=== PATIENT | male | born 1940 | race Caucasian/White ===

== ENCOUNTER → 2018-03-24 12:29 | Outpatient (CLI) | payer MEDICARE, OTHER, SELFPAY ==
--- NOTE | 2018-03-24 | DI.US.S_ITS ---
PROCEDURE: US CAROTID DOPPLER BI INDICATIONS: RIGHT SDIDED CAROTID ENDARTERECTOMY TECHNIQUE: Color and pulse Doppler interrogation was performed of both carotid systems, with image documentation and velocity measurements. COMPARISON: [facility], , CAROTID ARTERY DOPPLER BILAT, 02/11/2017, 11:15. FINDINGS: Stenosis calculations are based on SRU (Society of Radiologists in Ultrasound) criteria. Right side: Brachial blood pressure: 136/86 mm Hg. Common carotid artery peak systolic velocity: 92 cm/sec. Internal carotid artery peak systolic velocity: 77 cm/sec. Internal carotid artery end diastolic velocity: 19 cm/sec. External carotid artery peak systolic velocity: 67 cm/sec. ICA/CCA peak systolic ratio: 0.84. Cox scale imaging description: Minimal plaque at the bifurcation. Percent internal carotid artery stenosis: Less than 50%. Vertebral artery: Flow direction is antegrade. Left side: Brachial blood pressure: 1:30 1036 mm Hg. Common carotid artery peak systolic velocity: 109 cm/sec. Internal carotid artery peak systolic velocity: 192 cm/sec. Internal carotid artery end diastolic velocity: 47 cm/sec. External carotid artery peak systolic velocity: 248 cm/sec. ICA/CCA peak systolic ratio: 1.76. Cox scale imaging description: Moderate plaque at the bifurcation. Percent internal carotid artery stenosis: 50-69%. Vertebral artery: Flow direction is antegrade. IMPRESSION: 1. Less than 50% stenosis on the right, unchanged. 2. 50-69% on the right. Although percentage of stenosis is unchanged, it is noted that there has been elevation in both velocities as well as ICA/CCA ratio demonstrating interval progression. Dictated by: Anastasia Retana M.D. on 03/24/2018 at 16:24 Approved by: Anastasia Retana M.D. on 03/24/2018 at 16:26
== END ==
PROVIDERS: PCP Family Medicine; Visit Provider Internal Medicine Cardiovascular Disease
DX: I65.23 Occlusion and stenosis of bilateral carotid arteries (principal); Z98.890 Other specified postprocedural states
CPT/HCPCS: 93880

== ENCOUNTER → 2020-03-02 11:58 | Outpatient (CLI) | payer MEDICARE, OTHER, SELFPAY ==
--- NOTE | 2020-03-02 12:48 | DI.US.S_ITS ---
PROCEDURE: US CAROTID DOPPLER BI INDICATIONS: STENOSIS TECHNIQUE: Color and pulse Doppler interrogation was performed of both carotid systems, with image documentation and velocity measurements. COMPARISON: [facility], , US CAROTID DOPPLER BI, 03/24/2018, 13:08. FINDINGS: Stenosis calculations are based on SRU (Society of Radiologists in Ultrasound) criteria. Right side: Brachial blood pressure: 133/71 mm Hg. Common carotid artery peak systolic velocity: 106 cm/sec. Internal carotid artery peak systolic velocity: 96 cm/sec. Internal carotid artery end diastolic velocity: 32 cm/sec. External carotid artery peak systolic velocity: 94 cm/sec. ICA/CCA peak systolic ratio: 0.9 . Cox scale imaging description: Moderate scattered plaque Percent internal carotid artery stenosis: Less than 50% . Vertebral artery: Flow direction is antegrade. Left side: Brachial blood pressure: 132/76 mm Hg. Common carotid artery peak systolic velocity: 128 cm/sec. Internal carotid artery peak systolic velocity: 175 cm/sec. Internal carotid artery end diastolic velocity: 47 cm/sec. External carotid artery peak systolic velocity: 156 cm/sec. ICA/CCA peak systolic ratio: 1.4 . Cox scale imaging description: Heavy scattered plaque. Percent internal carotid artery stenosis: 50-69% Vertebral artery: Flow direction is antegrade. IMPRESSION 1. Stable, less than 50% stenosis of the right ICA. 2. Stable 50-69% left ICA stenosis. Dictated by: Brett Michele [facility] Interpreted: Vivienne Acosta MD on 03/02/2020 at 13:08 Approved by: Vivienne Acosta M.D. on 03/02/2020 at 14:37
== END ==
PROVIDERS: PCP Family Medicine; Referring Provider Internal Medicine Cardiovascular Disease; Visit Provider Internal Medicine Cardiovascular Disease
DX: I65.23 Occlusion and stenosis of bilateral carotid arteries (principal)
CPT/HCPCS: 93880

== ENCOUNTER → 2021-05-18 08:32 | Outpatient (CLI) | payer MEDICARE, OTHER, SELFPAY ==
--- NOTE | 2021-05-18 | DI.US.S_ITS ---
PROCEDURE: US CAROTID DOPPLER BI INDICATIONS: RIGHT CAROTID ENDARTERECTOMY TECHNIQUE: Color and pulse Doppler interrogation was performed of both carotid systems, with image documentation and velocity measurements. COMPARISON: [facility], , US CAROTID DOPPLER BI, 03/24/2018, 13:08. [facility], , CAROTID ARTERY DOPPLER BILAT, 02/11/2017, 11:15. [facility], , CAROTID ARTERY DOPPLER BILAT, 03/27/2015, 9:03. [facility], , CAROTID ARTERY DOPPLER BILAT, 01/05/2014, 15:02. [facility], , CAROTID ARTERY DOPPLER BILAT, 09/28/2012, 12:56. [facility], , US CAROTID DOPPLER BI, 03/02/2020, 12:32. FINDINGS: Stenosis calculations are based on SRU (Society of Radiologists in Ultrasound) criteria. Right side: Brachial blood pressure: 106/54 mm Hg. Common carotid artery peak systolic velocity: 123 cm/sec (prior 106 cm/s). Internal carotid artery peak systolic velocity: 120 cm/sec (prior 96 cm/s). Internal carotid artery end diastolic velocity: 17 cm/sec (prior 32 cm/s). External carotid artery peak systolic velocity: 130 cm/sec (prior 94 cm/s). ICA/CCA peak systolic ratio: 1 (prior 0.9). Cox scale imaging description: Prior carotid endarterectomy. Percent internal carotid artery stenosis: Less than 50% by velocity criteria. Vertebral artery: Flow direction is antegrade. Left side: Brachial blood pressure: 114/63 mm Hg. Common carotid artery peak systolic velocity: 119 cm/sec (prior 128 cm/s). Internal carotid artery peak systolic velocity: 292 cm/sec (prior 175 cm/s). Internal carotid artery end diastolic velocity: 49 cm/sec (prior 47 cm/s). External carotid artery peak systolic velocity: 210 cm/sec (prior 157 cm/s). ICA/CCA peak systolic ratio: 2.5 (prior 1.4). Cox scale imaging description: Moderate atherosclerotic changes are seen. Percent internal carotid artery stenosis: Greater than 70%. Vertebral artery: Flow direction is antegrade. IMPRESSION: Worsening disease on the left compared to the prior examination, now with greater than 70% stenosis by velocity criteria within the left internal carotid artery. There is also greater than 50% stenosis seen involving the left external carotid artery. Prior right carotid endarterectomy change can be seen, without recurrent stenosis. Dictated by: Yogesh Bales M.D. on 05/18/2021 at 9:27 Approved by: Yogesh Bales M.D. on 05/18/2021 at 9:31
== END ==
PROVIDERS: PCP Family Medicine; Referring Provider Internal Medicine Cardiovascular Disease; Visit Provider Internal Medicine Cardiovascular Disease
DX: I65.23 Occlusion and stenosis of bilateral carotid arteries (principal); Z98.890 Other specified postprocedural states
CPT/HCPCS: 93880

== ENCOUNTER → 2021-10-29 12:28 | Outpatient (CLI) | payer MEDICARE, OTHER, SELFPAY ==
--- NOTE | 2021-10-29 | DI.US.S_ITS ---
PROCEDURE: US CAROTID DOPPLER BI INDICATIONS: STENOSIS TECHNIQUE: Color and pulse Doppler interrogation was performed of both carotid systems, with image documentation and velocity measurements. COMPARISON: [facility], , US CAROTID DOPPLER BI, 05/18/2021, 8:57. FINDINGS: Stenosis calculations are based on SRU (Society of Radiologists in Ultrasound) criteria. Right side: Brachial blood pressure: 130/66 mm Hg. Common carotid artery peak systolic velocity: 122 cm/sec. Internal carotid artery peak systolic velocity: 73 cm/sec. Internal carotid artery end diastolic velocity: 23 cm/sec. External carotid artery peak systolic velocity: 114 cm/sec. ICA/CCA peak systolic ratio: 0.6. Cxo scale imaging description: Postsurgical changes from prior endarterectomy. Percent internal carotid artery stenosis: No significant stenosis. Vertebral artery: Flow direction is antegrade. Left side: Brachial blood pressure: 129/70 mm Hg. Common carotid artery peak systolic velocity: 148 cm/sec. Internal carotid artery peak systolic velocity: 255 cm/sec. Internal carotid artery end diastolic velocity: 65 cm/sec. External carotid artery peak systolic velocity: 291 cm/sec. ICA/CCA peak systolic ratio: 1.7. Cox scale imaging description: Multifocal calcified atherosclerotic plaque. Percent internal carotid artery stenosis: 70% to near occlusion. Vertebral artery: Flow direction is antegrade. IMPRESSION: 1. Greater than 70% stenosis of the left proximal internal carotid artery does not appear significantly changed when compared to the exam from 05/18/2021. 2. Postsurgical changes again seen from right carotid endarterectomy without recurrent stenosis. Dictated by: Marlon Vallecillo M.D. on 10/29/2021 at 20:39 Approved by: Marlon Vallecillo M.D. on 10/29/2021 at 20:43
== END ==
PROVIDERS: PCP Family Medicine; Referring Provider Internal Medicine Cardiovascular Disease; Visit Provider Internal Medicine Cardiovascular Disease
DX: I65.23 Occlusion and stenosis of bilateral carotid arteries (principal)
CPT/HCPCS: 93880

== ENCOUNTER → 2022-05-14 11:03 | Outpatient (CLI) | payer MEDICARE, OTHER, SELFPAY | PROVIDERS: PCP Family Medicine; Referring Provider Nurse Practitioner Family; Visit Provider Nurse Practitioner Family | DX: I65.22 Occlusion and stenosis of left carotid artery (principal); Z98.890 Other specified postprocedural states; Z53.20 Procedure and treatment not carried out because of patient's decision for unspecified reasons ==

== ENCOUNTER → 2022-08-20 10:06 | Outpatient (CLI) | payer MEDICARE, OTHER, SELFPAY ==
--- NOTE | 2022-08-20 | DI.US.S_ITS ---
PROCEDURE: US CAROTID DOPPLER BI INDICATIONS: HISTORY OF OCCLUSION AND RIGHT ENDARTERECTOMY TECHNIQUE: Color and pulse Doppler interrogation was performed of both carotid systems, with image documentation and velocity measurements. COMPARISON: [facility], , CAROTID DOPPLER BI, 10/29/2021, 12:36. FINDINGS: Stenosis calculations are based on SRU (Society of Radiologists in Ultrasound) criteria. Right side: Brachial blood pressure: 128/69 mm Hg. Common carotid artery peak systolic velocity: 146 cm/sec. Internal carotid artery peak systolic velocity: 109 cm/sec. Internal carotid artery end diastolic velocity: 24 cm/sec. External carotid artery peak systolic velocity: 151 cm/sec. ICA/CCA peak systolic ratio: 0.7 Cox scale imaging description: Atherosclerotic plaque Percent internal carotid artery stenosis: Less than 50 . Vertebral artery: Flow direction is antegrade. Left side: Brachial blood pressure: 125/63 mm Hg. Common carotid artery peak systolic velocity: 139 cm/sec. Internal carotid artery peak systolic velocity: 287 cm/sec. Internal carotid artery end diastolic velocity: 39 cm/sec. External carotid artery peak systolic velocity: 292 cm/sec. ICA/CCA peak systolic ratio: 2.1 Cox scale imaging description: Moderate atherosclerotic plaque Percent internal carotid artery stenosis: Greater than 70% . Vertebral artery: Flow direction is antegrade. IMPRESSION: Peak systolic velocity and ratio is consistent with a greater than 70% stenosis in the left proximal ICA. Less than 50% stenosis proximal right ICA Approved by: Ruben Winston M.D. on 08/20/2022 at 16:38
--- NOTE | 2022-08-20 | DI.ECHO.S_ITS ---
[facility]---------+ [facility] +---------+ : : [address] : : : : [id number] : : : : Phone: [phone]+ Echocardiogram Report + + :Name: JAIME MEJIAS Study Date: 08/20/2022 Height: 68.5 in: :[facility] ReadingLocation: Weight: 164 lb : : Gender: Male BSA: 1.9 m2 : :: 1940 Age: 82 yrs BP: 139/94 mmHg: :Reason For Study: MURMUR : :Ordering Physician: MANDI, : :MIKE Performed By: Rylee Parker : :Referring: MIKE RAYMOND : + + Interpretation Summary 1) Normal left ventricular size, wall motion, and systolic function (EF 55- 60%). 2) Normal right ventricular size with mildly reduced function. 3) There is mild to moderate aortic stenosis (valve area 1.1cm2, mean gradient 13mmHg, severity ratio 0.46). 4) No prior Echo available for comparison. Procedure: A two-dimensional transthoracic echocardiogram with color flow and Doppler was performed. The study quality was technically adequate. There is no prior echocardiogram noted for this patient. The patient was in sinus rhythm with heart rates between 58-72 bpm during the exam. Left Ventricle: The left ventricle is normal in size. Left ventricular wall thickness is at the upper limits of normal. Proximal septal thickening is noted. The ejection fraction is estimated to be 55-60%. Left ventricular systolic function appears normal without focal wall motion abnormalities. Right Ventricle: The right ventricle is normal size. Right ventricular systolic function is mildly reduced. Atria: The left atrial size is normal. Right atrial size is normal. There is no Doppler evidence for an interatrial shunt. Mitral Valve: The mitral valve is normal in structure and function. There is mild mitral regurgitation. Aortic Valve: The aortic valve is trileaflet. The aortic valve is moderately calcified. There is mildly reduced leaflet mobility. The peak aortic velocity is 2.3 m/sec. The aortic valve mean gradient is 13 mmHg. The calculated aortic valve area is 1.1 cm2. There is mild to moderate aortic stenosis. There is mild aortic regurgitation. Tricuspid Valve: The tricuspid valve is normal in structure and function. There is mild tricuspid regurgitation. The right ventricular systolic pressure is estimated to be at least 36 mmHg based on an estimated right atrial pressure of 3 mm Hg. Pulmonic Valve: The pulmonic valve leaflets are thin and pliable; valve motion is normal. There is no pulmonic valvular regurgitation. Great Vessels: The aortic root is normal size. The dimensions of the ascending aorta are normal. The IVC is of normal diameter and collapses greater than 50% with a sniff. This suggests a low right atrial pressure of 3 mm Hg. Pericardium/ Pleura There is no pericardial effusion. There is no pleural effusion. MMode/2D Measurements & Calculations LVIDd: 4.6 cm LVOT diam: 1.7 cm LVIDs: 2.9 cm Ao root diam: 2.9 cm FS: 36.3 % asc Aorta Diam: 3.5 cm IVSd: 1.3 cm Ao Arch Diam (Prox Trans): 2.1 cm LVPWd: 0.92 cm LV huang. diameter/BSA (cm/m^2): 2.4 LV sys. diameter/BSA (cm/m^2): 1.5 LA A2 area: 20.2 cm2 RA long axis: 5.2 cm LA A4 area: 19.9 cm2 RA area: 18.1 cm2 LA length (vol): 5.4 cm RA vol: 54.0 ml LA vol: 63.1 ml RA : 28.6 ml/m2 LA vol index: 33.4 ml/m2 IVC diam: 1.3 cm RVD1 (basal): 3.9 cm RVD2 (mid): 2.2 cm TAPSE: 1.6 cm Doppler Measurements & Calculations Ao V2 max: 234.3 cm/sec LVOT Max Good: 105.5 cm/sec Ao V2 mean: 156.0 cm/sec LV V1 max P.5 mmHg Ao max P.0 mmHg LV V1 VTI: 24.4 cm Ao mean P.1 mmHg NAHUN(I,D): 1.1 cm2 Ao V2 VTI: 52.9 cm NAHUN(V,D): 1.1 cm2 sev ratio: 0.46 NAHUN indexed to BSA (cm^2/m^2): 0.58 MV E max good: 76.7 cm/sec TR max good: 283.1 cm/sec MV A max good: 89.5 cm/sec TR max P.1 mmHg MV E/A: 0.86 PA V2 max: 104.8 cm/sec Med Peak E' Good: 6.9 cm/sec PA V2 mean: 69.4 cm/sec E/E' med: 11.1 PA mean P.2 mmHg Lat Peak E' Good: 8.1 cm/sec PA pr(Accel): 41.3 mmHg E/E' lat: 9.5 E/e' average: 10.3 MV dec time: 0.25 sec SV(LVOT): 58.4 ml Reading Physician:04:16 PM
--- NOTE | 2022-08-20 | DI.NM.S_ITS ---
PROCEDURE: MD GENE PERF SPECT R&S PHARM Rest and pharmacological stress myocardial perfusion SPECT with gated imaging and ejection fraction RADIOPHARMACEUTICAL: 11.5 mCi Tc-99m tetrafosmin IV at rest and 25.4 mCi Tc-99m tetrafosmin IV at peak effect of pharmacological stress. A [id number] was performed. TECHNIQUE: Radiopharmaceutical was injected at peak stress test, and also at rest. SPECT images were obtained. SPECT myocardial perfusion images were displayed in short axis, horizontal long axis, and vertical long axis views. Gated images were reviewed using Aerospike software. COMPARISON: None. CARDIAC STRESS: A pharmacologic stress test was performed under the supervision of an attending staff, using an infusion of regadenoson. Hemodynamic data: There is normal blood pressure and heart rate response to pharmacologic stress. Symptoms: The patient denied anginal chest pain. EKG: No diagnostic ECG changes. FINDINGS: Raw data: There is good myocardial uptake of radiotracer. No significant motion artifacts. Iyju-cj-dvima ratio is 0.34 (normal is less than 0.38 for tetrafosmin tracer). Left ventricle function: Gated images demonstrate normal left ventricular wall thickening except mild hypokinesis of the inferoapex. No segmental wall motion abnormalities. No transient ischemic dilation; TID is 1.06 (normal less than 1.3). Left ventricle resting end diastolic volume is 89 mL. Left ventricle stress ejection fraction is 74%; normal range is above 45%. Myocardial perfusion: There is a small size, mild intensity partially reversible apical inferior wall defect. No reversible perfusion defects. IMPRESSION: Low risk study without inducible ischemia. The small size, mild intensity, partially reversible apical inferior wall defect with associated mild hypokinesis is consistent with a prior small nontransmural infarct. Normal LV function. Dictated by: Mariann Crain D.O. on 08/20/2022 at 16:36 Approved by: Mariann Crain D.O. on 08/20/2022 at 16:51
== END ==
PROVIDERS: PCP Family Medicine; Referring Provider Internal Medicine Cardiovascular Disease; Visit Provider Internal Medicine Cardiovascular Disease
DX: I65.23 Occlusion and stenosis of bilateral carotid arteries (principal); I08.3 Combined rheumatic disorders of mitral, aortic and tricuspid valves; R06.02 Shortness of breath; R01.1 Cardiac murmur, unspecified; I25.10 Atherosclerotic heart disease of native coronary artery without angina pectoris; Z95.1 Presence of aortocoronary bypass graft; Z98.890 Other specified postprocedural states
CPT/HCPCS: 78452; 93017; 93306; 93880; A9502; J2785

== ENCOUNTER → 2024-01-27 14:12 | Outpatient (CLI) | payer MEDICARE, OTHER, SELFPAY ==
--- NOTE | 2024-01-27 14:14 | DI.US.S_ITS ---
PROCEDURE: US CAROTID DOPPLER BI INDICATIONS: Shortness of breath TECHNIQUE: Color and pulse Doppler interrogation was performed of both carotid systems, with image documentation and velocity measurements. COMPARISON: [facility], [place], US CAROTID DOPPLER BI, 08/20/2022, 10:38. FINDINGS: Stenosis calculations are based on SRU (Society of Radiologists in Ultrasound) criteria. Right side: Brachial blood pressure: 144/69 mm Hg. Common carotid artery peak systolic velocity: 93 cm/sec. Internal carotid artery peak systolic velocity: 69 cm/sec. Internal carotid artery end diastolic velocity: 12 cm/sec. External carotid artery peak systolic velocity: 90 cm/sec. ICA/CCA peak systolic ratio: 0.8. Cox scale imaging description: Mild atherosclerotic plaque at the common carotid bifurcation Percent internal carotid artery stenosis: Less than 50% stenosis . Vertebral artery: Flow direction is antegrade. Left side: Brachial blood pressure: 141/70 mm Hg. Common carotid artery peak systolic velocity: 111 cm/sec. Internal carotid artery peak systolic velocity: 236 cm/sec. Internal carotid artery end diastolic velocity: 24 cm/sec. External carotid artery peak systolic velocity: 227 cm/sec. ICA/CCA peak systolic ratio: 2.1 . Cox scale imaging description: Moderate atherosclerotic plaque Percent internal carotid artery stenosis: Greater than 70% Vertebral artery: Flow direction is antegrade. IMPRESSION: * Less than 50% stenosis in the right proximal internal carotid artery, unchanged. * Greater than 70% stenosis in the left proximal internal carotid artery, unchanged as well. Dictated by: Candy May M.D. on 01/27/2024 at 18:02 Approved by: Candy May M.D. on 01/27/2024 at 18:07
--- NOTE | 2024-01-27 14:23 | DI.ECHO.S_ITS ---
[facility]---------+ [facility] : : [address] : [address] : : [id number] : : Phone: [phone] Echocardiogram Report + + :Name: JAIME MEJIAS Study Date: 01/27/2024 Height: 68 in : :[facility] ReadingLocation: Weight: 160 lb : : Gender: Male BSA: 1.9 m2 : :: 1940 Age: 83 yrs BP: 170/84 mmHg: :Reason For Study: SHORTNESS OF BREATH : :Ordering Physician: MANDI, : :MIKE Performed By: Laurent Liu : :Referring: MIKE RAYMOND : + + Interpretation Summary The left ventricle is normal in size. The left ventricular ejection fraction is normal. The ejection fraction is estimated to be 60-65%. There has been no significant change in LVEF since the previous exam. The right ventricle is mildly dilated. Right ventricular systolic function is borderline reduced. Previously mildly reduced. There is mild to moderate mitral regurgitation. Compared to the prior echo study, there has been an increase in the severity of mitral regurgitation. Aortic valve appears to be tricuspid. Moderate to heavily calcified. At least moderately reduced excursion. The peak aortic velocity is 2.9 m/sec. The aortic valve mean gradient is 19.7 mmHg. The peak aortic velocity on the previous exam was 2.3 m/sec. sev ratio: 0.33 The calculated aortic valve area is 1-1.1 cm2. Overall moderate aortic stenosis. There is moderate tricuspid regurgitation. The right ventricular systolic pressure is estimated to be at least 50.5 mmHg based on an estimated right atrial pressure of 3 mm Hg. Previously 36 mmHg. Compared to the prior echo exam, there has been an increase in TR severity. Compared to the prior echo exam, there has been an increase in the severity of pulmonary hypertension. Procedure: A two-dimensional transthoracic echocardiogram with color flow and Doppler was performed. The study quality was technically adequate. Comparison is made with the echocardiogram of 08/20/22. The patient was in sinus rhythm with heart rates between 61-91 bpm during the exam. Left Ventricle: The left ventricle is normal in size. Left ventricular wall thickness is mildly increased. Proximal septal thickening is noted. There is no echo evidence for significant left ventricular outflow tract obstruction. There is no thrombus. The ejection fraction is estimated to be 60-65%. The left ventricular ejection fraction is normal. There has been no significant change since the previous exam. There are no focal wall motion abnormalities. Diastolic parameters suggest a relaxation abnormality of the left ventricle, consistent with probable normal filling pressures. Right Ventricle: The right ventricle is mildly dilated. Right ventricular systolic function is borderline reduced. Atria: The left atrium is severely dilated. The left atrium has significantly increased in size since the prior echo exam. The right atrium is moderately dilated. The interatrial septum grossly appears intact with no obvious evidence for an atrial septal defect. 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 No flail leaflet. There is moderate mitral annular calcification. The mitral valve leaflets are mildly calcified. The mitral valve chordae are thickened and/or calcified. There is no mitral valve stenosis. There is mild to moderate mitral regurgitation. Compared to the prior echo study, there has been an increase in the severity of mitral regurgitation. Aortic Valve: Aortic valve appears to be tricuspid. Moderate to heavily calcified. At least moderately reduced excursion. There is moderate aortic stenosis. The peak aortic velocity is 2.9 m/sec. The aortic valve mean gradient is 19.7 mmHg. The peak aortic velocity on the previous exam was 2.3 m/sec. The calculated aortic valve area is 1-1.1 cm2. There is trace aortic regurgitation. Tricuspid Valve: The tricuspid valve is not well visualized, but is grossly normal. There is no tricuspid stenosis. There is moderate tricuspid regurgitation. The right ventricular systolic pressure is estimated to be at least 50.5 mmHg based on an estimated right atrial pressure of 3 mm Hg. Compared to the prior echo exam, there has been an increase in TR severity. Compared to the prior echo exam, there has been an increase in the severity of pulmonary hypertension. Pulmonic Valve: The pulmonic valve is not well seen, but is grossly normal. There is no pulmonic valvular stenosis. There is trace pulmonic regurgitation. Great Vessels: The aortic root is normal size. The dimensions of the ascending aorta are normal. The IVC is of normal diameter and collapses greater than 50% with a sniff. This suggests a low right atrial pressure of 3 mm Hg. Pericardium/ Pleura There is no pericardial effusion. There is no pleural effusion. MMode/2D Measurements & Calculations LVIDd: 4.6 cm LVOT diam: 2.0 cm LVIDs: 3.5 cm Ao root diam: 3.1 cm FS: 24.9 % asc Aorta Diam: 3.4 cm IVSd: 1.2 cm LVPWd: 1.2 cm LV huang. diameter/BSA (cm/m^2): 2.5 LV sys. diameter/BSA (cm/m^2): 1.9 LA A2 area: 25.8 cm2 RA long axis: 4.5 cm LA A4 area: 21.5 cm2 RA area: 16.0 cm2 LA length (vol): 5.2 cm RA vol: 48.8 ml LA vol: 89.9 ml RA : 26.2 ml/m2 LA vol index: 48.4 ml/m2 IVC diam: 1.7 cm RVD1 (basal): 4.1 cm RVD2 (mid): 3.3 cm Doppler Measurements & Calculations Ao V2 max: 289.8 cm/sec LVOT Max Good: 102.9 cm/sec Ao V2 mean: 209.9 cm/sec LV V1 max P.2 mmHg Ao max P.6 mmHg LV V1 VTI: 25.0 cm Ao mean P.7 mmHg NAHUN(I,D): 1.00 cm2 Ao V2 VTI: 75.1 cm NAHUN(V,D): 1.1 cm2 sev ratio: 0.33 NAHUN indexed to BSA (cm^2/m^2): 0.54 MV E max good: 49.6 cm/sec TR max good: 344.5 cm/sec MV A max good: 94.0 cm/sec TR max P.5 mmHg MV E/A: 0.53 PA V2 max: 113.1 cm/sec Med Peak E' Good: 4.5 cm/sec PA V2 mean: 79.5 cm/sec E/E' med: 11.1 PA mean P.8 mmHg Lat Peak E' Good: 5.6 cm/sec PA pr(Accel): 44.7 mmHg E/E' lat: 8.9 E/e' average: 10.0 MV dec time: 0.20 sec SV(LVOT): 74.9 ml Reading Physician:01:06 PM
== END ==
PROVIDERS: PCP Family Medicine; Referring Provider Internal Medicine Cardiovascular Disease; Visit Provider Internal Medicine Cardiovascular Disease
DX: Z98.890 Other specified postprocedural states; I65.23 Occlusion and stenosis of bilateral carotid arteries; I08.3 Combined rheumatic disorders of mitral, aortic and tricuspid valves; R06.02 Shortness of breath
CPT/HCPCS: 93306; 93880

== ENCOUNTER → 2025-01-17 08:47 | Outpatient (CLI) | payer MEDICARE, OTHER, SELFPAY ==
--- NOTE | 2025-01-17 08:50 | DI.US.S_ITS ---
PROCEDURE: US CAROTID DOPPLER bilateral INDICATIONS: Carotid stenosis, history of right endarteroctomy, per notes TECHNIQUE: Color and pulse Doppler interrogation was performed of both carotid systems, with image documentation and velocity measurements. Twenty images COMPARISON: [facility], [place], US CAROTID DOPPLER BI, 01/27/2024, 14:28. FINDINGS: Stenosis calculations are based on SRU (Society of Radiologists in Ultrasound) criteria. Right side: Brachial blood pressure: 125/65 mm Hg. Common carotid artery peak systolic velocity: 74 cm/sec. Internal carotid artery peak systolic velocity: 82 cm/sec. Internal carotid artery end diastolic velocity: 20 cm/sec. External carotid artery peak systolic velocity: 95 cm/sec. ICA/CCA peak systolic ratio: 1.1. Cox scale imaging description: Mild echogenic plaque at the carotid bifurcation unchanged. Percent internal carotid artery stenosis: Less than 50% . Vertebral artery: Flow direction is antegrade. Left side: Brachial blood pressure: 125/56 mm Hg. Common carotid artery peak systolic velocity: 81 cm/sec. Internal carotid artery peak systolic velocity: 183 cm/sec. Internal carotid artery end diastolic velocity: 25 cm/sec. External carotid artery peak systolic velocity: 146 cm/sec. ICA/CCA peak systolic ratio: 2.3 . Previously 2.1 Cox scale imaging description: Moderate diffuse vascular calcifications atherosclerotic plaque at the carotid bifurcation and proximal internal and external carotid arteries, unchanged. Percent internal carotid artery stenosis: 50-69% . Vertebral artery: Flow direction is antegrade. IMPRESSION: 1. In the right carotid artery, there is less than 50% stenosis based on peak systolic velocity criteria unchanged. 2. In the left carotid artery, there is 50-69 % stenosis based on peak systolic velocity criteria relatively unchanged. 3. Antegrade vertebral arteries. Dictated by: Villa Hendrix M.D. on 01/17/2025 at 12:46 Approved by: Villa Hendrix M.D. on 01/17/2025 at 12:55
--- NOTE | 2025-01-17 08:50 | DI.ECHO.S_ITS ---
[facility] : : [id number] : [place] : : [id number] : : Phone: [phone] Echocardiogram Report + + :Name: JAIME MEJIAS Study Date: 01/17/2025 Height: 68 in : :Hospital ReadingLocation: Weight: 150 lb : : Gender: Male BSA: 1.8 m2 : :: 1940 Age: 84 yrs BP: 138/69 mmHg: :Reason For Study: AORTIC STENOSIS : :Ordering Physician: MANDI, : :MIKE Performed By: Rylee Parker : :Referring: MIKE RAYMOND : + + Interpretation Summary The left ventricle is normal in size. The left ventricular ejection fraction is normal. The ejection fraction is estimated to be 60-65%. There has been no significant change in LVEF since the previous exam. The right ventricle is borderline dilated. Right ventricular systolic function is mildly reduced. The aortic valve is heavily calcified. There is moderately reduced leaflet mobility. The peak aortic velocity is 2.89 m/sec. The aortic valve mean gradient is 18.6 mmHg. The peak aortic velocity on the previous exam was 2.9 m/sec. The calculated aortic valve area is 1.3 cm2. sev ratio: 0.48 There is mild to moderate aortic stenosis. No significant change in aortic stenosis. There is mild aortic regurgitation. There is mild to moderate tricuspid regurgitation. The right ventricular systolic pressure is estimated to be at least 36 mmHg based on an estimated right atrial pressure of 3 mm Hg. Previously moderate TR and PASP 50.5 mmHg. Procedure: A two-dimensional transthoracic echocardiogram with color flow and Doppler was performed. The study quality was technically adequate. Comparison is made with the echocardiogram of 01/27/2024. The patient was in sinus bradycardia with heart rates between 57-67 bpm during the exam. The patient had a bundle branch block rhythm during the exam. Left Ventricle: The left ventricle is normal in size. Left ventricular wall thickness is mildly increased. Proximal septal thickening is noted. There is no thrombus. The ejection fraction is estimated to be 60-65%. The left ventricular ejection fraction is normal. There has been no significant change since the previous exam. There are no focal wall motion abnormalities. MV E/A: 0.78 Med Peak E' Good: 4.1 cm/sec E/E' med: 16.5. Right Ventricle: The right ventricle is borderline dilated. Right ventricular systolic function is mildly reduced. Right ventricular systolic function has not changed since previous exam. Atria: The left atrium is moderately dilated. The left atrium has mildly decreased in size since the prior echo exam. The right atrium is moderately dilated. There is no Doppler evidence for an interatrial shunt. Mitral Valve: The mitral valve leaflets are mildly calcified. There is moderate mitral annular calcification. The mitral valve chordae are thickened and/or calcified. There is mild mitral regurgitation. Compared to the prior echo study, there has been a decrease in the severity of mitral regurgitation. Aortic Valve: The aortic valve is heavily calcified. There is moderately reduced leaflet mobility. The aortic valve is trileaflet. The peak aortic velocity is 2.89 m/sec. The aortic valve mean gradient is 18.6 mmHg. The calculated aortic valve area is 1.3 cm2. The peak aortic velocity on the previous exam was 2.9 m/sec. There is mild to moderate aortic stenosis. There is mild aortic regurgitation. Tricuspid Valve: The tricuspid valve is normal. There is mild to moderate tricuspid regurgitation. The right ventricular systolic pressure is estimated to be at least 36 mmHg based on an estimated right atrial pressure of 3 mm Hg. Pulmonic Valve: The pulmonic valve is not well seen, but is grossly normal. There is no pulmonic valvular regurgitation. Great Vessels: The aortic root is normal size. The dimensions of the ascending aorta are normal. The IVC is of normal diameter and collapses greater than 50% with a sniff. This suggests a low right atrial pressure of 3 mm Hg. Pericardium/ Pleura There is no pericardial effusion. There is no pleural effusion. MMode/2D Measurements & Calculations LVIDd: 4.3 cm LVOT diam: 2.0 cm LVIDs: 2.9 cm Ao root diam: 2.9 cm FS: 33.2 % asc Aorta Diam: 3.4 cm IVSd: 1.0 cm LVPWd: 0.85 cm LV huang. diameter/BSA (cm/m^2): 2.4 LV sys. diameter/BSA (cm/m^2): 1.6 LA A2 area: 20.4 cm2 RA long axis: 5.2 cm LA A4 area: 17.4 cm2 RA area: 18.2 cm2 LA length (vol): 5.0 cm RA vol: 54.3 ml LA vol: 59.9 ml RA : 30.0 ml/m2 LA vol index: 33.1 ml/m2 IVC diam: 1.4 cm RVD1 (basal): 4.1 cm RVD2 (mid): 3.6 cm TAPSE: 1.5 cm Doppler Measurements & Calculations Ao V2 max: 285.4 cm/sec LVOT Max Good: 116.9 cm/sec Ao V2 mean: 189.9 cm/sec LV V1 max P.5 mmHg Ao max P.5 mmHg LV V1 VTI: 29.8 cm Ao mean P.6 mmHg NAHUN(I,D): 1.5 cm2 Ao V2 VTI: 62.5 cm NAHUN(V,D): 1.3 cm2 sev ratio: 0.48 NAHUN indexed to BSA (cm^2/m^2): 0.84 AI P1/2t: 424.3 msec AI dec slope: 211.7 cm/sec2 MV E max good: 68.3 cm/sec TR max good: 289.1 cm/sec MV A max good: 88.2 cm/sec TR max P.4 mmHg MV E/A: 0.78 PA V2 max: 109.9 cm/sec Med Peak E' Good: 4.1 cm/sec PA V2 mean: 76.0 cm/sec E/E' med: 16.5 PA mean P.6 mmHg Lat Peak E' Good: 6.6 cm/sec PA pr(Accel): 36.6 mmHg E/E' lat: 10.4 E/e' average: 13.5 MV dec time: 0.28 sec SV(LVOT): 94.8 ml Reading Physician:02:00 PM
== END ==
PROVIDERS: PCP Family Medicine; Referring Provider Internal Medicine Cardiovascular Disease; Visit Provider Internal Medicine Cardiovascular Disease
DX: I08.3 Combined rheumatic disorders of mitral, aortic and tricuspid valves (principal); I65.23 Occlusion and stenosis of bilateral carotid arteries; R00.1 Bradycardia, unspecified; Z98.890 Other specified postprocedural states
CPT/HCPCS: 93306; 93880